=== PATIENT | male | born 1985 | race Caucasian/White ===

== ENCOUNTER 2024-05-16 06:20 | Outpatient (CLI) | payer BC, OTHER ==
[2024-05-16] MEDS ORDERED: iohexol 300 MG/1 ML 50ml polymer ONE (06:39)
[2024-05-16] MEDS ORDERED: LIDOcaine 1%/PF 5ML 10 MG/ML VIAL ONE (06:39)
[2024-05-16] MEDS ORDERED: LIDOcaine 1% 30ml preserv. free vial ONE (06:39)
[2024-05-16] MEDS ORDERED: GADOTERATE MEGLUMINE 7.5 MMOL/15 ML VIAL IV ONE (06:39)
== END 2024-05-16 23:59 | disposition home or self-care (01) ==
LOC: RAD 06:20
PROVIDERS: ATTEND Chiropractor
DX: M25.851 Other specified joint disorders, right hip (principal); M76.01 Gluteal tendinitis, right hip; M54.50 Low back pain, unspecified; M54.6 Pain in thoracic spine; M54.2 Cervicalgia; M99.9 Biomechanical lesion, unspecified; M99.01 Segmental and somatic dysfunction of cervical region; M99.02 Segmental and somatic dysfunction of thoracic region; M99.03 Segmental and somatic dysfunction of lumbar region
CPT/HCPCS: 27093; 73722; 77002; A9575; J2003; J3490; Q9967; 73525